=== PATIENT | female | born 1990 | race African-American/Black ===

== ENCOUNTER 2020-09-02 10:49 | Emergency (ER) | payer OTHER ==
[~2020-09-02] VITALS: Ht 160 cm; Wt 61.2 kg
--- NOTE | 2020-09-02 11:02 | NUR ---
patient was called not in the waiting room
[2020-09-02 11:30] VITALS: BP 134/78
--- NOTE | 2020-09-02 11:34 | NUR ---
ED Nurse Note:pt. fell last night and having small laceration on right second finger, no bleeding
[2020-09-02] MEDS ORDERED: Lidocaine 1% MPF 10mg/ml 5ml INJ ONE (12:00)
[2020-09-02] MEDS ORDERED: HYDROcodone/Acetamin 5/325 tab ORAL ONE (12:15)
--- NOTE | 2020-09-02 12:31 | Emergency Room Report ---
History of Present Illness General Chief Complaint: Laceration Source: Patient Present Illness HPI 29-year-old female presents to the emergency department complaining of 9 out of 10 severity tenderness, swelling, pain as well as open laceration to the right index finger. Patient reports that she fell off a stripper pole at approximately 2 AM while under the influence. Patient states she has pain with movement of the right finger. She is right-hand dominant. Patient states she is up-to-date with tetanus vaccines. She denies taking blood thinning medications. She denies paresthesias or loss of gross motor movements. Patient reports pain with active movement. Allergies: Coded Allergies: PENICILLINS (Verified Allergy, Unknown, 09/02/20) COVID-19 Screening Contact w/high risk pt: No Experienced COVID-19 symptoms?: No COVID-19 Testing performed UNDERWEAR HEMMER: No Patient History Past Medical History: see triage record Past Surgical History: none Pertinent Family History: none Now: No Immunizations: UTD Reviewed Nursing Documentation: PMH: Agreed; PSxH: Agreed Nursing Documentation-PMH Hx Asthma: Yes Review of Systems All Other Systems: negative except mentioned in HPI Physical Exam Vital Signs Date Time Temp Pulse Resp B/P (MAP) Pulse Ox O2 Delivery O2 Flow Rate FiO2 09/02/20 11:05 97.9 86 16 134/78 (96) 96 Room Air Sp02 EP Interpretation: reviewed, normal General Appearance: no apparent distress, alert, GCS 15, non-toxic Head: normocephalic, atraumatic Eyes: bilateral eye normal inspection, bilateral eye PERRL ENT: hearing grossly normal, normal voice Neck: full range of motion Respiratory: lungs clear, normal breath sounds, speaking full sentences Cardiovascular #1: regular rate, rhythm Musculoskeletal: back normal, normal range of motion, digits/nails normal, gait/station normal, tender - PIP joint of the right index finger, swelling noted. avulsion laceration 1cm in length, not bleeding. , other - No visible tendon involvement, able to flex against resistance Neurologic: alert, motor strength/tone normal, oriented x3, sensory intact, responsive, speech normal Psychiatric: judgement/insight normal Skin: laceration - PIP joint of the right index finger:Avulsion laceration 1cm in length, not bleeding. Medical Decision Making PA Attestation Dr. Guaman Is my supervising Physician whom patient management has been discussed with. Diagnostic Impression: Primary Impression: Laceration Additional Impression: Sprain of right index finger Qualified Codes: S63.630A - Sprain of interphalangeal joint of right index finger, initial encounter ER Course 29-year-old female presents to the emergency department complaining of 9 out of 10 severity tenderness, swelling, pain as well as open laceration to the right index finger. Patient reports that she fell off a stripper pole at approximately 2 AM while under the influence. Patient states she has pain with movement of the right finger. She is right-hand dominant. Patient states she is up-to-date with tetanus vaccines. She denies taking blood thinning medications. She denies paresthesias or loss of gross motor movements. Patient reports pain with active movement. Ddx considered but are not limited to laceration, tendon injury, cellulitis, amputation Vital signs: are WNL, pt. is afebrile H&PE are most consistent with: Avulsion laceration of the right index finger approx 1 cm in length, no active bleeding. ORDERS: -X-ray right fingers/hand: unremarkable ED INTERVENTIONS: -Tetanus vaccine was administered as pt. vaccination status was unknown. - The wound was copiously irrigated with normal saline, and explored for foreign body for which no FB was found. No visible tendon involvement, able to flex against resistance D/W pt. healing by secondary intent due to nature of avulsion laceration with some missing skin. -Bacitracin and sterile dressing is applied. -- Finger Splint applied to the right index finger by RN. Pt. remains neurovascularly intact. Discussed with patient: That we make every effort to approximate the laceration as best as we can so that scarring will be as cosmetically pleasing as possible with our limited cosmetic skill set in the Emergency dept. Regardless of our best efforts there will be scarring after laceration repair. The extent of scarring is unknown at this time. DISCHARGE: At this time pt. is stable for d/c to home. Will provide printed patient care instructions, and any necessary prescriptions. Care plan and follow up instructions have been discussed with the patient prior to discharge. Other X-Ray Diagnostic Results Other X-Ray Diagnostic Results : X-Ray ordered: Right hand # of Views/Limited Vs Complete: 3 View Indication: Pain EP Interpretation: Yes PA Xray: Interpretation reviewed, by supervising MD, and agrees with findings. Interpretation: no dislocation, no soft tissue swelling, no fractures Impression: No acute disease Electronically Signed by: Jennifer Zaragoza PA-C Last Vital Signs Date Time Temp Pulse Resp B/P (MAP) Pulse Ox O2 Delivery O2 Flow Rate FiO2 09/02/20 11:30 97.9 16 134/78 96 Room Air 09/02/20 11:05 86 Status: improved Disposition: HOME, SELF-CARE Condition: Stable Scripts Ibuprofen* (MOTRIN*) 600 Mg Tablet 600 MG ORAL THREE TIMES A DAY, #20 TAB Prov: Jennifer Zaragoza 09/02/20 Bacitracin (Bacitracin) 28.4 Gm Oint...g. 1 APPLIC TOPIC THREE TIMES A DAY, #28.4 GM Prov: Jennifer Zaragoza 09/02/20 Cephalexin* (KEFLEX*) 500 Mg Capsule 500 MG ORAL EVERY 12 HOURS, #14 CAP 0 Refills Prov: Jennifer Zaragoza 09/02/20 Patient Instructions: Nonsutured Laceration Care Additional Instructions: Take medications as directed. Follow up with a Primary Care Provider in 3-5 days, even if your symptoms have resolved. --Please review list of primary care clinics, if you do not already have a primary care provider Return sooner to ED if new symptoms occur, or current symptoms become worse. - Please note that this Emergency Department Report was dictated using Geekangels[employer] level business analyst technology software, occasionally this can lead to erroneous entry secondary to interpretation by the dictation equipment. Jennifer Zaragoza Sep 02, 2020 12:31
[2020-09-02] MEDS ORDERED: BACITRACIN15 GM TOPIC (12:33)
[2020-09-02] MEDS ORDERED: IBUPROFEN600 M1 ORAL (12:33)
[2020-09-02] MEDS ORDERED: CEPHALEXIN500 MG ORAL (12:33)
[2020-09-02 13:00] VITALS: BP 134/78
--- NOTE | 2020-09-02 13:00 | NUR ---
ED Nurse Note: Pt cleared by health care Provider for discharge. DC instructions/prescription was given and explained to pt and verbalized understanding of teachings. All medical deviecs such as ID band removed. Pt is AAO x4, ambulatory and left with all personal belongings.
--- NOTE | 2020-09-02 16:48 | Diagnostic Imaging Report ---
Indication: Laceration of the second finger Technique: 3 views of the right second finger Comparison: none Findings: Slight soft tissue swelling overlies the proximal phalanx. No radiopaque foreign body demonstrated. No bony disruption or fracture. No dislocation Impression: Minimal soft tissue swelling. Otherwise negative
== END 2020-09-02 13:30 | disposition home or self-care (01) ==
LOC: EMR 13:18
DX: S63.630A Sprain of interphalangeal joint of right index finger, initial encounter (principal); S61.210A Laceration without foreign body of right index finger without damage to nail, initial encounter; J45.909 Unspecified asthma, uncomplicated; Z88.0 Allergy status to penicillin; W17.89XA Other fall from one level to another, initial encounter; Y93.89 Activity, other specified; Y92.9 Unspecified place or not applicable
CPT/HCPCS: 29130; 73140; Z7502; 99283

== ENCOUNTER 2020-09-07 14:34 | Emergency (ER) | payer OTHER ==
[~2020-09-07] VITALS: Ht 160 cm; Wt 64.4 kg
[~2020-09-07 14:34] MED LIST: BACITRACIN15 GM TOPIC; CEPHALEXIN500 MG ORAL; IBUPROFEN600 M1 ORAL
[2020-09-07 14:47] VITALS: BP 119/97
--- NOTE | 2020-09-07 14:47 | NUR ---
ED Nurse Note: Pt walked in to ED right 2nd finger laceration. Pt was seen here last 09/02/20 and was told to come back after 3-4 days. No active bleeding noted. Pt presented with a finger splint. AAOx4. no SOB.
--- NOTE | 2020-09-07 15:09 | Emergency Room Report ---
History of Present Illness General Chief Complaint: Laceration Source: Patient Present Illness HPI 29-year-old female presents to the emergency department for wound recheck. Patient was seen here 5 days ago for avulsion laceration of the right index finger. Patient also sustained finger sprain. Patient has remained in finger splint since injury. Initial laceration was not sutured due to being of avulsion type. She is right-hand dominant. Up-to-date with vaccinations. Denies pain at this time. No bleeding, erythema, warmth or discharge. No other aggravating or relieving factors patient has no other symptoms that she complains of. Allergies: Coded Allergies: PENICILLINS (Verified Allergy, Unknown, 09/02/20) COVID-19 Screening Contact w/high risk pt: No Experienced COVID-19 symptoms?: No COVID-19 Testing performed HEMODIALYSIS LAB TECHNICIAN: No Patient History Past Medical History: see triage record Past Surgical History: none Pertinent Family History: none Last Menstrual Period: 09/05/20 Now: No Reviewed Nursing Documentation: PMH: Agreed; PSxH: Agreed Nursing Documentation-PMH Hx Asthma: Yes Review of Systems All Other Systems: negative except mentioned in HPI Physical Exam Vital Signs Date Time Temp Pulse Resp B/P (MAP) Pulse Ox O2 Delivery O2 Flow Rate FiO2 09/07/20 14:42 98.8 84 19 119/97 (104) 96 Room Air Sp02 EP Interpretation: reviewed, normal General Appearance: no apparent distress, alert, GCS 15, non-toxic Head: normocephalic, atraumatic Eyes: bilateral eye normal inspection, bilateral eye PERRL ENT: hearing grossly normal, normal voice Neck: full range of motion Respiratory: chest non-tender, lungs clear, normal breath sounds, speaking full sentences Cardiovascular #1: regular rate, rhythm, no edema Gastrointestinal: normal bowel sounds, non tender, soft Rectal: deferred Genitourinary: normal inspection Musculoskeletal: back normal, normal range of motion, gait/station normal, non- tender, swelling - the PIP joint of the righ tindex finger, bruise noted on the dorsal aspect- scant/mild Neurologic: alert, motor strength/tone normal, oriented x3, sensory intact, responsive, speech normal Psychiatric: judgement/insight normal Skin: wd healing/no infection noted - PIP joint of the right index finger --Healing laceration , no infection noted. , other - swelling the PIP joint of the righ tindex finger, bruise noted on the dorsal aspect- scant/mild Lymphatic: no adenopathy Medical Decision Making PA Attestation Dr. Ordoñez is my supervising Physician whom patient management has been discussed with. Diagnostic Impression: Primary Impression: Encounter for re-check of laceration wound ER Course 29-year-old female presents to the emergency department for wound recheck. Patient was seen here 5 days ago for avulsion laceration of the right index finger. Patient also sustained finger sprain. Patient has remained in finger splint since injury. Initial laceration was not sutured due to being of avulsion type. She is right-hand dominant. Up-to-date with vaccinations. Denies pain at this time. No bleeding, erythema, warmth or discharge. No other aggravating or relieving factors patient has no other symptoms that she complains of. Ddx considered but are not limited to laceration, tendon injury, cellulitis,dehiscence. Vital signs: are WNL, pt. is afebrile H&PE are most consistent with: Healing laceration of the right index finger, no infection noted.--laceration - PIP joint of the right index finger: ORDERS: none required at this time, the diagnosis is clinical ED INTERVENTIONS: - dressing and finger splint are removed, examination of wound performed. - right index finger splint applied by it technical architect. Pt. remains neurovascularly intact. DISCHARGE: At this time pt. is stable for d/c to home. Will provide printed patient care instructions, and any necessary prescriptions. Care plan and follow up instructions have been discussed with the patient prior to discharge. Last Vital Signs Date Time Temp Pulse Resp B/P (MAP) Pulse Ox O2 Delivery O2 Flow Rate FiO2 09/07/20 14:47 98.8 84 19 119/97 96 Room Air Disposition: HOME, SELF-CARE Condition: Stable Patient Instructions: Nonsutured Laceration Care Additional Instructions: Follow up with a Primary Care Provider in 1 week, if your symptoms have not resolved. only return to ED if infection is suspected. --Please review list of primary care clinics, if you do not already have a primary care provider Return sooner to ED if new symptoms occur, or current symptoms become worse. - Please note that this Emergency Department Report was dictated using [employer] natural [employer] treating unit operator technology software, occasionally this can lead to erroneous entry secondary to interpretation by the dictation equipment. Jennifer Zaragoza Sep 07, 2020 15:09
[2020-09-07 15:58] VITALS: BP 119/97
== END 2020-09-07 15:58 | disposition home or self-care (01) ==
LOC: EMR 14:55
DX: S61.210A Laceration without foreign body of right index finger without damage to nail, initial encounter (principal); Z88.0 Allergy status to penicillin; X58.XXXA Exposure to other specified factors, initial encounter; Y92.9 Unspecified place or not applicable
CPT/HCPCS: 29130; Z7502; 99282